=== PATIENT | female | born 1935 ===

== ENCOUNTER 2018-06-18 15:32 | Inpatient (IN) | payer MEDICARE, OTHER ==
[2018-06-18 15:44] VITALS: BMI 21.3
[2018-06-18 15:50] LABS: BASO % 0.5 % (0.0-2.0); EOS % 0.6 % (0.0-4.0); HEMOGLOBIN 11.7 g/dL (11.0-16.0); LYMPH # 1.1 K/uL (1.0-4.3); LYMPH % 14.7 % (20.0-40.0); MEAN CELL VOLUME 86.4 fL (81.0-99.0); MEAN CORPUSCULAR HEMOGLOBIN 27.3 pg (27.0-31.0); MEAN CORPUSCULAR HGB CONC 31.6 g/dL (33.0-37.0); MEAN PLATELET VOLUME 7.7 fL (7.2-11.7); MONO # 0.6 K/uL (0.0-0.8); MONO % 7.7 % (0.0-10.0); NEUT # 5.9 K/uL (1.8-7.0); NEUT % 76.5 % (50.0-75.0); NRBC % 0.1 % (0.0-2.0); RBC 4.28 Mil/uL (3.80-5.20); RED CELL DISTRIBUTION WIDTH 14.8 % (11.5-14.5); WHITE BLOOD COUNT 7.7 K/uL (4.8-10.8)
--- NOTE | 2018-06-18 15:57 | C.PDOC ---
History Of Present Illness 83 y/o F from NH sent as possible stroke. Patient was seen at her baseline last night. This is the last time well. At 7am this morning, patient seen with L sided facial droop, L sided weakness, not responding other than "ay ay ay" to pain. DC staff say patient is verbal at baseline. Full HPI/ROS unobtainable due to patient's condition. Time Seen by Provider: 06/18/18 15:38 Chief Complaint (Nursing): Weakness/Neurological Deficit History Per: Patient, EMS ([facility]) History/Exam Limitations: clinical condition Current Symptoms Are (Timing): Still Present Recent travel outside of the [place]: No Past Medical History Reviewed: Historical Data, Nursing Documentation, Vital Signs Vital Signs: Last Vital Signs Temp 98 F 06/18/18 15:34 Pulse 65 06/18/18 15:34 Resp 14 06/18/18 15:34 BP 134/64 06/18/18 15:34 Pulse Ox 97 06/18/18 15:34 - Medical History PMH: Arthritis, HTN, Schizophrenia Denies: Diabetes, Hepatitis, HIV, Chronic Kidney Disease, Seizures, Sexually Transmitted Disease Family History: States: Unknown Family Hx - Social History Hx Alcohol Use: No Hx Substance Use: No Review Of Systems Review Of Systems: ROS cannot be obtained secondary to pt's inabilty to answer questions. Physical Exam - Physical Exam Additional Physical Exam Comments: gen eye closed, leaning towards L head nc/at eyes pupils equal and reactive ent mmm neck supple chest no deformity cv reg rate lungs cta b/l abd soft, nt back no cva tenderness skin no rash extremities no asymmetrical edema neuro responsive to pain, L facial droop? ED Course And Treatment - Laboratory Results Result Diagrams: 06/18/18 15:41 06/18/18 16:44 O2 Sat by Pulse Oximetry: 97 (RA) Pulse Ox Interpretation: Normal - CT Scan/US CT Head Other Rad Studies (CT/US): Read By Radiologist CT/US Interpretation: FINDINGS: HEMORRHAGE: No intracranial hemorrhage. BRAIN: No mass effect or edema. Mild age-appropriate diffuse atrophy. Moderate patchy periventricular and deep white matter lucency consistent with chronic microvascular ischemic change. No evidence of acute infarct. VENTRICLES: Unremarkable. No hydrocephalus. CALVARIUM: Unremarkable. PARANASAL SINUSES: Unremarkable as visualized. No significant inflammatory changes. MASTOID AIR CELLS: Unremarkable as visualized. No inflammatory changes. OTHER FINDINGS: None. IMPRESSION: No evidence of acute infarct. No intracranial hemorrhage. Chronic white matter ischemic change and age- appropriate atrophy. The above findings were discussed by telephone with Dr. Linda at 4:02 p.m. on 06/18/2018. NIHSS Stroke Scale 2 - Date/Time Evaluation Performed Date Performed: 06/18/18 Time Performed: 15:59 When Was NIHSS Performed: Baseline - How Severe is the Stroke Level of Consciousness: 2=Obtunded LOC to Questions: 2=Neither correct LOC to commands: 2=Neither correct Best Gaze: 0=Normal Visual: 3=Bilateral Facial: 3=Complete unilateral paralysis Motor Arm - Left: 3=No effort against gravity (falls immediately) Motor Arm - Right: 3=No effort against gravity (falls immediately) Motor Leg - Left: 3=No effort against gravity (falls immediately) Motor Leg - Right: 3=No effort against gravity (falls immediately) Limb Ataxia: 0=Absent Sensory: 0=Normal Best Language: 0=No aphasia Dysarthia: 0=Normal articulation Extinction & Inattention (Neglect): 0=Normal, no object Score: 24 rTPA Inclusion/Exclusion - Refusal of Treatment Patient Refused Treatment: No - Inclusion Criteria for Altepase All of the below criteria for inclusion were reviewed: Yes Patient is 18 years or Older: Yes The Clinical Diagnosis of Ischemic Stroke That is Causing a Potentially Disabling Neurological Deficit: Yes Time of Onset is Well Established to be Less Than 270 Minute Before Treatment Would Begin: Yes Risk/Benefit Discussed With Patient/Family Member Present: Yes Medical Decision Making Medical Decision Making: Initial plan: -Blood sent. -EKG -CXR -CT Head w/o Code stroke -Urine culture -Urinalysis Progress/Update: 4:15pm: Spoke with Dr. Stevenson regarding the pt's case. At 5:30, patient awake, alert, answers questions, denies any pain or any complaints. Does not remember episode from earlier. Disposition - Disposition Disposition: HOSPITALIZED Disposition Time: 17:47 Condition: FAIR Forms: [facility] (Vietnamese) - POA Core Measure Indicators: Code Stroke - Clinical Impression Clinical Impression: TIA (transient ischemic attack)
--- NOTE | 2018-06-18 16:06 | CT ---
Date of service: 06/18/2018 PROCEDURE: CT HEAD WITHOUT CONTRAST. HISTORY: Code Stroke COMPARISON: None available. TECHNIQUE: Axial computed tomography images were obtained through the head/brain without intravenous contrast. Radiation dose: Total exam DLP = 1075.98 mGy-cm. This CT exam was performed using one or more of the following dose reduction techniques: Automated exposure control, adjustment of the mA and/or kV according to patient size, and/or use of iterative reconstruction technique. FINDINGS: HEMORRHAGE: No intracranial hemorrhage. BRAIN: No mass effect or edema. Mild age-appropriate diffuse atrophy. Moderate patchy periventricular and deep white matter lucency consistent with chronic microvascular ischemic change. No evidence of acute infarct. VENTRICLES: Unremarkable. No hydrocephalus. CALVARIUM: Unremarkable. PARANASAL SINUSES: Unremarkable as visualized. No significant inflammatory changes. MASTOID AIR CELLS: Unremarkable as visualized. No inflammatory changes. OTHER FINDINGS: None. IMPRESSION: No evidence of acute infarct. No intracranial hemorrhage. Chronic white matter ischemic change and age-appropriate atrophy. The above findings were discussed by telephone with Dr. Linda at 4:02 p.m. on 06/18/2018.
[2018-06-18 16:56] LABS: PROTHROMBIN TIME 11.4 SECONDS (9.7-12.2)
[2018-06-18 17:00] LABS: ALB/GLOB RATIO 1.4 (1.0-2.1); ALBUMIN 3.8 g/dL (3.5-5.0); ALT/SGPT 29 U/L (9-52); AST/SGOT 47 U/L (14-36); BLOOD UREA NITROGEN 23 mg/dL (7-17); CALCIUM 9.6 mg/dl (8.6-10.4); GFR NON-AFRICAN AMERICAN > 60; HDL CHOLESTEROL 76 mg/dL (30-70)
[2018-06-18 17:10] LABS: LDL CHOLESTEROL 108 mg/dL (0-129)
--- NOTE | 2018-06-18 17:35 | RAD ---
Date of service: 06/18/2018 HISTORY: Code Stroke COMPARISON: No prior. TECHNIQUE: 1 view obtained. FINDINGS: LUNGS: No active pulmonary disease. PLEURA: No significant pleural effusion identified, no pneumothorax apparent. CARDIOVASCULAR: No aortic atherosclerotic calcification present. Normal cardiac size. No pulmonary vascular congestion. OSSEOUS STRUCTURES: No significant abnormalities. VISUALIZED UPPER ABDOMEN: Normal. OTHER FINDINGS: None. IMPRESSION: No active disease.
[2018-06-18 17:38] LABS: URINE AMORPHOUS SEDIMENT RARE /ul (<OCC); URINE BACTERIA OCC (<OCC); URINE BILIRUBIN NEGATIVE (NEGATIVE); URINE BLOOD NEGATIVE (NEGATIVE); URINE CLARITY Hazy (Clear); URINE COLOR Yellow (YELLOW); URINE GLUCOSE (UA) NORMAL (Normal); URINE LEUKOCYTE ESTERASE NEG Leu/uL (Negative); URINE PROTEIN NEGATIVE (NEGATIVE)
[2018-06-18] MEDS: Sodium Chloride 0.9% 1,000 ML IV SCH (19:00)
--- NOTE | 2018-06-18 21:04 | CP.PCM.HP ---
History of Present Illness - History of Present Illness History of Present Illness: 83-year-old female was sent from the halfway because of possible stroke although patient's history is very poor and not reliable Patient was brought from the halfway as patient 7 in the morning complained of left facial droop witnessed and was not responding even in the ER patient was responding little less eventually patient was brought to the emergency room Case discussed with the ER attending patient is poor historian unable to obtain for HPI and review of systems patient was admitted with the code stroke Patient is 9 smoker non-EtOH abuser Hemoglobin hematocrit 1137 respectively with BUN/creatinine 1323 and 0.[address] head revealed no intracranial hemorrhage no evidence of acute infarct chronic white matter ischemic changes with age at Road appropriate atrophy 12 point review of system is unobtainable or not remarkable Arthritis, HTN, Schizophrenia Denies: Diabetes, Hepatitis, HIV, Chronic Kidney Disease, Seizures, Sexually Transmitted Disease Present on Admission - Present on Admission Any Indicators Present on Admission: No Past Patient History - Past Social History Smoking Status: Never Smoked - CARDIAC Hx Hypertension: Yes - PULMONARY Hx Tuberculosis: No - NEUROLOGICAL Hx Seizures: No - HEENT Hx HEENT Problems: No - RENAL Hx Chronic Kidney Disease: No - ENDOCRINE/METABOLIC Hx Endocrine Disorders: No - HEMATOLOGICAL/ONCOLOGICAL Hx Human Immunodeficiency Virus (HIV): No - INTEGUMENTARY Hx Dermatological Problems: No - MUSCULOSKELETAL/RHEUMATOLOGICAL Hx Arthritis: Yes - GASTROINTESTINAL Hx Gastrointestinal Disorders: No - GENITOURINARY/GYNECOLOGICAL Hx Sexually Transmitted Disorders: No - PSYCHIATRIC Hx Schizophrenia: Yes Hx Substance Use: No - SURGICAL HISTORY Hx Hysterectomy: Yes - ANESTHESIA Hx Anesthesia: Yes Hx Anesthesia Reactions: No Meds Allergies/Adverse Reactions: Allergies Allergy/AdvReac Type Severity Reaction Status Date / Time cucumber Allergy Verified 06/18/18 15:39 Iodinated Contrast- Oral and Allergy RASH Verified 05/27/17 19:37 IV Dye lettuce Allergy Verified 06/18/18 15:38 tomato Allergy Verified 06/18/18 15:39 Physical Exam - Constitutional Appears: Well - Head Exam Head Exam: ATRAUMATIC, NORMAL INSPECTION, NORMOCEPHALIC - Eye Exam Eye Exam: EOMI, Normal appearance, PERRL Pupil Exam: NORMAL ACCOMODATION, PERRL - ENT Exam ENT Exam: Mucous Membranes Moist, Normal Exam - Neck Exam Neck exam: Positive for: Normal Inspection - Respiratory Exam Respiratory Exam: Decreased Breath Sounds - Cardiovascular Exam Cardiovascular Exam: REGULAR RHYTHM, +S1, +S2 - GI/Abdominal Exam GI & Abdominal Exam: Diminished Bowel Sounds, Soft - Rectal Exam Rectal Exam: Deferred - Neurological Exam Neurological exam: Oriented x3 Results - Vital Signs Recent Vital Signs: Last Vital Signs Temp 98.2 F 06/18/18 19:00 Pulse 65 06/18/18 19:00 Resp 20 06/18/18 19:00 BP 180/80 H 06/18/18 19:00 Pulse Ox 100 06/18/18 19:00 - Labs Result Diagrams: 06/18/18 15:41 06/18/18 16:44 Labs: Laboratory Results - last 24 hr 06/18/18 06/18/18 06/18/18 15:36 15:41 15:41 WBC 7.7 RBC 4.28 Hgb 11.7 Hct 37.0 MCV 86.4 MCH 27.3 MCHC 31.6 L RDW 14.8 H Plt Count 287 MPV 7.7 Neut % (Auto) 76.5 H Lymph % (Auto) 14.7 L [place] % (Auto) 7.7 Eos % (Auto) 0.6 Baso % (Auto) 0.5 Neut # (Auto) 5.9 Lymph # (Auto) 1.1 [place] # (Auto) 0.6 Eos # (Auto) 0.0 Baso # (Auto) 0.0 PT INR APTT Sodium Cancelled Potassium Cancelled Chloride Cancelled Carbon Dioxide Cancelled Anion Gap Cancelled BUN Cancelled Creatinine Cancelled Est GFR ( Amer) Cancelled Est GFR (Non-Af Amer) Cancelled POC Glucose (mg/dL) 104 Random Glucose Cancelled Hemoglobin A1c Calcium Cancelled Total Bilirubin Cancelled AST Cancelled ALT Cancelled Alkaline Phosphatase Cancelled Troponin I Cancelled Total Protein Cancelled Albumin Cancelled Globulin Cancelled Albumin/Globulin Ratio Cancelled Triglycerides Cancelled Cholesterol Cancelled LDL Cholesterol Direct Cancelled HDL Cholesterol Cancelled Urine Color Urine Clarity Urine pH Ur Specific [place] Urine Protein Urine Glucose (UA) Urine Ketones Urine Blood Urine Nitrate Urine Bilirubin Urine Urobilinogen Ur Leukocyte Esterase Urine WBC (Auto) Urine RBC (Auto) Amorphous Sediment Urine Bacteria Blood Type Antibody Screen 06/18/18 06/18/18 06/18/18 15:41 16:44 16:44 WBC RBC Hgb Hct MCV MCH MCHC RDW Plt Count MPV Neut % (Auto) Lymph % (Auto) [place] % (Auto) Eos % (Auto) Baso % (Auto) Neut # (Auto) Lymph # (Auto) [place] # (Auto) Eos # (Auto) Baso # (Auto) PT 11.4 INR 1.0 APTT 34.0 Sodium Potassium Chloride Carbon Dioxide Anion Gap BUN Creatinine Est GFR ( Amer) Est GFR (Non-Af Amer) POC Glucose (mg/dL) Random Glucose Hemoglobin A1c 6.7 H Calcium Total Bilirubin AST ALT Alkaline Phosphatase Troponin I Total Protein Albumin Globulin Albumin/Globulin Ratio Triglycerides Cholesterol LDL Cholesterol Direct HDL Cholesterol Urine Color Urine Clarity Urine pH Ur Specific [place] Urine Protein Urine Glucose (UA) Urine Ketones Urine Blood Urine Nitrate Urine Bilirubin Urine Urobilinogen Ur Leukocyte Esterase Urine WBC (Auto) Urine RBC (Auto) Amorphous Sediment Urine Bacteria Blood Type O POSITIVE Antibody Screen Negative 06/18/18 06/18/18 16:44 17:25 WBC RBC Hgb Hct MCV MCH MCHC RDW Plt Count MPV Neut % (Auto) Lymph % (Auto) [place] % (Auto) Eos % (Auto) Baso % (Auto) Neut # (Auto) Lymph # (Auto) [place] # (Auto) Eos # (Auto) Baso # (Auto) PT INR APTT Sodium 140 Potassium 3.7 Chloride 100 Carbon Dioxide 33 H Anion Gap 10 BUN 23 H Creatinine 0.8 Est GFR ( Amer) > 60 Est GFR (Non-Af Amer) > 60 POC Glucose (mg/dL) Random Glucose 94 Hemoglobin A1c Calcium 9.6 Total Bilirubin 0.4 AST 47 H ALT 29 Alkaline Phosphatase 102 Troponin I < 0.0120 Total Protein 6.5 Albumin 3.8 Globulin 2.7 Albumin/Globulin Ratio 1.4 Triglycerides 78 Cholesterol 203 H LDL Cholesterol Direct 108 HDL Cholesterol 76 H Urine Color Yellow Urine Clarity Hazy Urine pH 6.0 Ur Specific [place] 1.017 Urine Protein Negative Urine Glucose (UA) Normal Urine Ketones Negative Urine Blood Negative Urine Nitrate Negative Urine Bilirubin Negative Urine Urobilinogen 2.0 H Ur Leukocyte Esterase Neg Urine WBC (Auto) 1 Urine RBC (Auto) 2 Amorphous Sediment Rare H Urine Bacteria Occ H Blood Type Antibody Screen Assessment & Plan - Assessment and Plan (Free Text) Plan: Plan CBC CMP EKG normal sinus rhythm normal nonspecific ST-T changes chest x-ray report pending CT head no acute stroke, urine culture and urine analysis sent aspirin crestor Patient passed swallow eval so started the patient on the food All the medications ordered and advised to resume Plan and Home medication reconciliation Plan of care discussed with the staff Will call the family
--- NOTE | 2018-06-19 11:10 | CP.PCM.CON ---
History of Present Illness - History of Present Illness History of Present Illness: Neurology consult called by Dr. Linda as a code stroke with NIHSS of 4 initially, resolved within 1 hour of presentation. Therefore, patient was not considered a TPA candidate. Patient today has no focal weakness, NIHSS: 0. Able to follow commands, and identify objects in [place] A/p: TIA most likely, vs. seizure. Plan; 1. MRI BRain in am. 2. EEG in am Thank you DR. mahoney Neurology Past Patient History - Past Social History Smoking Status: Never Smoked - CARDIAC Hx Hypertension: Yes - PULMONARY Hx Tuberculosis: No - NEUROLOGICAL Hx Seizures: No - HEENT Hx HEENT Problems: No - RENAL Hx Chronic Kidney Disease: No - ENDOCRINE/METABOLIC Hx Endocrine Disorders: No - HEMATOLOGICAL/ONCOLOGICAL Hx Human Immunodeficiency Virus (HIV): No - INTEGUMENTARY Hx Dermatological Problems: No - MUSCULOSKELETAL/RHEUMATOLOGICAL Hx Arthritis: Yes - GASTROINTESTINAL Hx Gastrointestinal Disorders: No - GENITOURINARY/GYNECOLOGICAL Hx Sexually Transmitted Disorders: No - PSYCHIATRIC Hx Schizophrenia: Yes Hx Substance Use: No - SURGICAL HISTORY Hx Hysterectomy: Yes - ANESTHESIA Hx Anesthesia: Yes Hx Anesthesia Reactions: No Meds Allergies/Adverse Reactions: Allergies Allergy/AdvReac Type Severity Reaction Status Date / Time cucumber Allergy Verified 06/18/18 15:39 Iodinated Contrast- Oral and Allergy RASH Verified 05/27/17 19:37 IV Dye lettuce Allergy Verified 06/18/18 15:38 tomato Allergy Verified 06/18/18 15:39 - Medications Medications: Current Medications Amlodipine Besylate (Norvasc) 10 mg PO DAILY [facility] Last Admin: 06/19/18 09:26 Dose: 10 mg Aspirin (Aspirin Chewable) 81 mg PO DAILY [facility] Last Admin: 06/19/18 09:27 Dose: 81 mg Bisoprolol Fumarate (Zebeta) 5 mg PO DAILY [facility] Last Admin: 06/19/18 09:25 Dose: 5 mg Docusate Sodium (Colace) 100 mg PO BID [facility] Last Admin: 06/19/18 09:27 Dose: 100 mg Famotidine (Pepcid) 20 mg PO DAILY [facility] Last Admin: 06/19/18 09:26 Dose: 20 mg Furosemide (Lasix) 20 mg PO DAILY [facility] Last Admin: 06/19/18 09:27 Dose: 20 mg Sodium Chloride (Sodium Chloride 0.9%) 1,000 mls @ 60 mls/hr IV .[id number] [facility] Last Admin: 06/18/18 19:00 Dose: 60 mls/hr Latanoprost (Xalatan Opht) 0.05 ml OD [facility] Prednisone (Prednisone Tab) 5 mg PO DAILY [facility] Last Admin: 06/19/18 09:26 Dose: 5 mg Risperidone (Risperdal Tab) 0.25 mg PO Q12 [facility] Last Admin: 06/19/18 09:26 Dose: 0.25 mg Rosuvastatin Calcium (Crestor) 10 mg PO HS [facility] Last Admin: 06/18/18 22:21 Dose: 10 mg Results - Vital Signs Recent Vital Signs: Last Vital Signs Temp 98.1 F 06/19/18 07:00 Pulse 63 06/19/18 07:00 Resp 20 06/19/18 07:00 BP 130/65 06/19/18 09:27 Pulse Ox 98 06/19/18 07:00 - Labs Result Diagrams: 06/18/18 15:41 06/18/18 16:44 Labs: Laboratory Results - last 24 hr 06/18/18 06/18/18 06/18/18 15:36 15:41 15:41 WBC 7.7 RBC 4.28 Hgb 11.7 Hct 37.0 MCV 86.4 MCH 27.3 MCHC 31.6 L RDW 14.8 H Plt Count 287 MPV 7.7 Neut % (Auto) 76.5 H Lymph % (Auto) 14.7 L [place] % (Auto) 7.7 Eos % (Auto) 0.6 Baso % (Auto) 0.5 Neut # (Auto) 5.9 Lymph # (Auto) 1.1 [place] # (Auto) 0.6 Eos # (Auto) 0.0 Baso # (Auto) 0.0 PT INR APTT Sodium Cancelled Potassium Cancelled Chloride Cancelled Carbon Dioxide Cancelled Anion Gap Cancelled BUN Cancelled Creatinine Cancelled Est GFR ( Amer) Cancelled Est GFR (Non-Af Amer) Cancelled POC Glucose (mg/dL) 104 Random Glucose Cancelled Hemoglobin A1c Calcium Cancelled Total Bilirubin Cancelled AST Cancelled ALT Cancelled Alkaline Phosphatase Cancelled Troponin I Cancelled Total Protein Cancelled Albumin Cancelled Globulin Cancelled Albumin/Globulin Ratio Cancelled Triglycerides Cancelled Cholesterol Cancelled LDL Cholesterol Direct Cancelled HDL Cholesterol Cancelled Urine Color Urine Clarity Urine pH Ur Specific [place] Urine Protein Urine Glucose (UA) Urine Ketones Urine Blood Urine Nitrate Urine Bilirubin Urine Urobilinogen Ur Leukocyte Esterase Urine WBC (Auto) Urine RBC (Auto) Amorphous Sediment Urine Bacteria Blood Type Antibody Screen 06/18/18 06/18/18 06/18/18 15:41 16:44 16:44 WBC RBC Hgb Hct MCV MCH MCHC RDW Plt Count MPV Neut % (Auto) Lymph % (Auto) [place] % (Auto) Eos % (Auto) Baso % (Auto) Neut # (Auto) Lymph # (Auto) [place] # (Auto) Eos # (Auto) Baso # (Auto) PT 11.4 INR 1.0 APTT 34.0 Sodium Potassium Chloride Carbon Dioxide Anion Gap BUN Creatinine Est GFR ( Amer) Est GFR (Non-Af Amer) POC Glucose (mg/dL) Random Glucose Hemoglobin A1c 6.7 H Calcium Total Bilirubin AST ALT Alkaline Phosphatase Troponin I Total Protein Albumin Globulin Albumin/Globulin Ratio Triglycerides Cholesterol LDL Cholesterol Direct HDL Cholesterol Urine Color Urine Clarity Urine pH Ur Specific [place] Urine Protein Urine Glucose (UA) Urine Ketones Urine Blood Urine Nitrate Urine Bilirubin Urine Urobilinogen Ur Leukocyte Esterase Urine WBC (Auto) Urine RBC (Auto) Amorphous Sediment Urine Bacteria Blood Type O POSITIVE Antibody Screen Negative 06/18/18 06/18/18 06/18/18 16:44 17:25 20:56 WBC RBC Hgb Hct MCV MCH MCHC RDW Plt Count MPV Neut % (Auto) Lymph % (Auto) [place] % (Auto) Eos % (Auto) Baso % (Auto) Neut # (Auto) Lymph # (Auto) [place] # (Auto) Eos # (Auto) Baso # (Auto) PT INR APTT Sodium 140 Potassium 3.7 Chloride 100 Carbon Dioxide 33 H Anion Gap 10 BUN 23 H Creatinine 0.8 Est GFR ( Amer) > 60 Est GFR (Non-Af Amer) > 60 POC Glucose (mg/dL) 118 H Random Glucose 94 Hemoglobin A1c Calcium 9.6 Total Bilirubin 0.4 AST 47 H ALT 29 Alkaline Phosphatase 102 Troponin I < 0.0120 Total Protein 6.5 Albumin 3.8 Globulin 2.7 Albumin/Globulin Ratio 1.4 Triglycerides 78 Cholesterol 203 H LDL Cholesterol Direct 108 HDL Cholesterol 76 H Urine Color Yellow Urine Clarity Hazy Urine pH 6.0 Ur Specific [place] 1.017 Urine Protein Negative Urine Glucose (UA) Normal Urine Ketones Negative Urine Blood Negative Urine Nitrate Negative Urine Bilirubin Negative Urine Urobilinogen 2.0 H Ur Leukocyte Esterase Neg Urine WBC (Auto) 1 Urine RBC (Auto) 2 Amorphous Sediment Rare H Urine Bacteria Occ H Blood Type Antibody Screen
[2018-06-19] MEDS: Sodium Chloride 0.9% 1,000 ML IV SCH (11:24)
--- NOTE | 2018-06-19 11:27 | CP.PCM.CON ---
History of Present Illness - History of Present Illness History of Present Illness: I was asked to see patient by Dr Benavidez Patient seen 06/19/18 [id number] Patient is a 83 year old female with HTN, hypercholesterolemia who presents with TIA. The patinet cannot give apporpriate history but had previous weakness, Symptoms appear to have resolved. Review of Systems - Review of Systems Systems not reviewed;Unavailable: Altered Mental Status Past Patient History - Past Social History Smoking Status: Never Smoked - CARDIAC Hx Hypertension: Yes - PULMONARY Hx Tuberculosis: No - NEUROLOGICAL Hx Seizures: No - HEENT Hx HEENT Problems: No - RENAL Hx Chronic Kidney Disease: No - ENDOCRINE/METABOLIC Hx Endocrine Disorders: No - HEMATOLOGICAL/ONCOLOGICAL Hx Human Immunodeficiency Virus (HIV): No - INTEGUMENTARY Hx Dermatological Problems: No - MUSCULOSKELETAL/RHEUMATOLOGICAL Hx Arthritis: Yes - GASTROINTESTINAL Hx Gastrointestinal Disorders: No - GENITOURINARY/GYNECOLOGICAL Hx Sexually Transmitted Disorders: No - PSYCHIATRIC Hx Schizophrenia: Yes Hx Substance Use: No - SURGICAL HISTORY Hx Hysterectomy: Yes - ANESTHESIA Hx Anesthesia: Yes Hx Anesthesia Reactions: No Meds Allergies/Adverse Reactions: Allergies Allergy/AdvReac Type Severity Reaction Status Date / Time cucumber Allergy Verified 06/18/18 15:39 Iodinated Contrast- Oral and Allergy RASH Verified 05/27/17 19:37 IV Dye lettuce Allergy Verified 06/18/18 15:38 tomato Allergy Verified 06/18/18 15:39 - Medications Medications: Current Medications Amlodipine Besylate (Norvasc) 10 mg PO DAILY [facility] Last Admin: 06/19/18 09:26 Dose: 10 mg Aspirin (Aspirin Chewable) 81 mg PO DAILY [facility] Last Admin: 06/19/18 09:27 Dose: 81 mg Bisoprolol Fumarate (Zebeta) 5 mg PO DAILY [facility] Last Admin: 06/19/18 09:25 Dose: 5 mg Docusate Sodium (Colace) 100 mg PO BID [facility] Last Admin: 06/19/18 09:27 Dose: 100 mg Famotidine (Pepcid) 20 mg PO DAILY [facility] Last Admin: 06/19/18 09:26 Dose: 20 mg Furosemide (Lasix) 20 mg PO DAILY [facility] Last Admin: 06/19/18 09:27 Dose: 20 mg Sodium Chloride (Sodium Chloride 0.9%) 1,000 mls @ 60 mls/hr IV .[id number] [facility] Last Admin: 06/18/18 19:00 Dose: 60 mls/hr Latanoprost (Xalatan Opht) 0.05 ml OD HS [facility] Prednisone (Prednisone Tab) 5 mg PO DAILY [facility] Last Admin: 06/19/18 09:26 Dose: 5 mg Risperidone (Risperdal Tab) 0.25 mg PO Q12 [facility] Last Admin: 06/19/18 09:26 Dose: 0.25 mg Rosuvastatin Calcium (Crestor) 10 mg PO HS [facility] Last Admin: 06/18/18 22:21 Dose: 10 mg Physical Exam - Constitutional Appears: Non-toxic - Head Exam Head Exam: NORMAL INSPECTION - Eye Exam Eye Exam: Normal appearance - ENT Exam ENT Exam: Mucous Membranes Moist - Neck Exam Neck exam: Positive for: Full Rom, Normal Inspection - Respiratory Exam Respiratory Exam: NORMAL BREATHING PATTERN - Cardiovascular Exam Cardiovascular Exam: REGULAR RHYTHM - GI/Abdominal Exam GI & Abdominal Exam: Normal Bowel Sounds - Rectal Exam Rectal Exam: Deferred - Extremities Exam Extremities exam: Positive for: normal inspection. Negative for: pedal edema - Back Exam Back exam: NORMAL INSPECTION - Neurological Exam Neurological exam: Alert, Oriented x3 - Psychiatric Exam Psychiatric exam: Normal Affect - Skin Skin Exam: Normal Color Results - Vital Signs Recent Vital Signs: Last Vital Signs Temp 98.1 F 06/19/18 07:00 Pulse 63 06/19/18 07:00 Resp 20 06/19/18 07:00 BP 130/65 06/19/18 09:27 Pulse Ox 98 06/19/18 07:00 - Labs Result Diagrams: 06/18/18 15:41 06/18/18 16:44 Labs: Laboratory Results - last 24 hr 06/18/18 06/18/18 06/18/18 15:36 15:41 15:41 WBC 7.7 RBC 4.28 Hgb 11.7 Hct 37.0 MCV 86.4 MCH 27.3 MCHC 31.6 L RDW 14.8 H Plt Count 287 MPV 7.7 Neut % (Auto) 76.5 H Lymph % (Auto) 14.7 L [place] % (Auto) 7.7 Eos % (Auto) 0.6 Baso % (Auto) 0.5 Neut # (Auto) 5.9 Lymph # (Auto) 1.1 [place] # (Auto) 0.6 Eos # (Auto) 0.0 Baso # (Auto) 0.0 PT INR APTT Sodium Cancelled Potassium Cancelled Chloride Cancelled Carbon Dioxide Cancelled Anion Gap Cancelled BUN Cancelled Creatinine Cancelled Est GFR ( Amer) Cancelled Est GFR (Non-Af Amer) Cancelled POC Glucose (mg/dL) 104 Random Glucose Cancelled Hemoglobin A1c Calcium Cancelled Total Bilirubin Cancelled AST Cancelled ALT Cancelled Alkaline Phosphatase Cancelled Troponin I Cancelled Total Protein Cancelled Albumin Cancelled Globulin Cancelled Albumin/Globulin Ratio Cancelled Triglycerides Cancelled Cholesterol Cancelled LDL Cholesterol Direct Cancelled HDL Cholesterol Cancelled Urine Color Urine Clarity Urine pH Ur Specific [place] Urine Protein Urine Glucose (UA) Urine Ketones Urine Blood Urine Nitrate Urine Bilirubin Urine Urobilinogen Ur Leukocyte Esterase Urine WBC (Auto) Urine RBC (Auto) Amorphous Sediment Urine Bacteria Blood Type Antibody Screen 06/18/18 06/18/18 06/18/18 15:41 16:44 16:44 WBC RBC Hgb Hct MCV MCH MCHC RDW Plt Count MPV Neut % (Auto) Lymph % (Auto) [place] % (Auto) Eos % (Auto) Baso % (Auto) Neut # (Auto) Lymph # (Auto) [place] # (Auto) Eos # (Auto) Baso # (Auto) PT 11.4 INR 1.0 APTT 34.0 Sodium Potassium Chloride Carbon Dioxide Anion Gap BUN Creatinine Est GFR ( Amer) Est GFR (Non-Af Amer) POC Glucose (mg/dL) Random Glucose Hemoglobin A1c 6.7 H Calcium Total Bilirubin AST ALT Alkaline Phosphatase Troponin I Total Protein Albumin Globulin Albumin/Globulin Ratio Triglycerides Cholesterol LDL Cholesterol Direct HDL Cholesterol Urine Color Urine Clarity Urine pH Ur Specific [place] Urine Protein Urine Glucose (UA) Urine Ketones Urine Blood Urine Nitrate Urine Bilirubin Urine Urobilinogen Ur Leukocyte Esterase Urine WBC (Auto) Urine RBC (Auto) Amorphous Sediment Urine Bacteria Blood Type O POSITIVE Antibody Screen Negative 06/18/18 06/18/18 06/18/18 16:44 17:25 20:56 WBC RBC Hgb Hct MCV MCH MCHC RDW Plt Count MPV Neut % (Auto) Lymph % (Auto) [place] % (Auto) Eos % (Auto) Baso % (Auto) Neut # (Auto) Lymph # (Auto) [place] # (Auto) Eos # (Auto) Baso # (Auto) PT INR APTT Sodium 140 Potassium 3.7 Chloride 100 Carbon Dioxide 33 H Anion Gap 10 BUN 23 H Creatinine 0.8 Est GFR ( Amer) > 60 Est GFR (Non-Af Amer) > 60 POC Glucose (mg/dL) 118 H Random Glucose 94 Hemoglobin A1c Calcium 9.6 Total Bilirubin 0.4 AST 47 H ALT 29 Alkaline Phosphatase 102 Troponin I < 0.0120 Total Protein 6.5 Albumin 3.8 Globulin 2.7 Albumin/Globulin Ratio 1.4 Triglycerides 78 Cholesterol 203 H LDL Cholesterol Direct 108 HDL Cholesterol 76 H Urine Color Yellow Urine Clarity Hazy Urine pH 6.0 Ur Specific [place] 1.017 Urine Protein Negative Urine Glucose (UA) Normal Urine Ketones Negative Urine Blood Negative Urine Nitrate Negative Urine Bilirubin Negative Urine Urobilinogen 2.0 H Ur Leukocyte Esterase Neg Urine WBC (Auto) 1 Urine RBC (Auto) 2 Amorphous Sediment Rare H Urine Bacteria Occ H Blood Type Antibody Screen - EKG Data EKG Interpreted by: Myself EKG shows normal: Sinus rhythm Assessment & Plan (1) HTN (hypertension) Assessment and Plan: blood pressure control Status: Acute (2) Hypercholesterolemia Assessment and Plan: recommend statin therapy Status: Acute (3) TIA (transient ischemic attack) Assessment and Plan: recommend echocardiogram. statin therapy. Status: Acute
--- NOTE | 2018-06-19 13:55 | CON ---
DATE: 06/19/2018 Neurology consult called by Dr. Bari Linda for Aaliyah Slade. HISTORY OF PRESENT ILLNESS: Ms. Slade is an 83-year-old [facility], with last time well known, 9 p.m. the night before. At 7 a.m. this morning, the [facility] was discovered [facility] staff with left-sided facial droop, left-sided weakness, not responding with aphasia. She was in pain, but they were not able to determine any other post the neurological exam. At baseline, the patient is very verbal, speaking in [place] and [place], and is able to follow all commands. She was brought to the emergency room and code stroke was called. However, after obtaining CAT scan, the patient's symptoms resolved. This morning, the patient's symptoms have completely resolved and she has an NIH Stroke Scale of zero with initial NIH Stroke Scale of 4. PAST MEDICAL HISTORY: Arthritis, hepatitis, schizophrenia. PAST SURGICAL HISTORY: Not known. FAMILY HISTORY/SOCIAL HISTORY: The patient is a [facility] resident. No tobacco. No alcohol. ALLERGIES: CUCUMBER, IODINATED CONTRAST, FOR THIS REASON WE WERE NOT ABLE TO OBTAIN CT OF THE HEAD AND NECK. LABS ON ADMISSION: As follows: White count 7.7, hemoglobin 11.7, hematocrit 37. Sodium 140, potassium 3.7, bicarb 100, chloride 33, BUN 20, creatinine 0.8, glucose 94. CAT scan of the head was done and shows diffuse atrophy but no focal findings were noted. PHYSICAL EXAMINATION: On exam, the patient had the following neurologic exam. NEUROLOGIC: Alert, awake, oriented x2. The date was not correct. Pupils equal, round, reactive to light. Cranial nerves II through XII normal. There is no facial droop. EOMI. Mini-mental status was approximately 20/30. The patient dementia. She was able to name and repeat. She was able to identify body parts. She was able to identify simple objects. Remote and recent memory were 0/3. Writing and reading were not tested. The patient's attention span was poor. Motor tone was normal. Strength is 5/5 upper and lower limbs bilaterally. Sensory was not accurate. She did not elicit any deficit from fine touch or pin. Gait was not tested. Reflexes are +1 in upper and lower limbs bilaterally. Cranial nerves showed no dysmetria. There is no drift. IMPRESSION: This is an 83-year-old woman with possible transient ischemic attack. We will obtain MRI of the brain and as it is possible she may also had a focal seizure. Thank you for this consult. Santo Stevenson MD
[2018-06-19] MEDS: Latanoprost 2.5 ml Opht Soln OD SCH (21:45)
--- NOTE | 2018-06-19 22:12 | CP.PCM.PN ---
Subjective - Date & Time of Evaluation Date of Evaluation: 06/19/18 - Subjective Subjective: patient seen examined today at bedside no nausea no vomiting no dizziness no shortness of breath no diarrhea no fever Objective - Vital Signs/Intake and Output Vital Signs (last 24 hours): Temp Pulse Resp BP Pulse Ox 97.9 F 76 20 125/65 95 06/19/18 15:42 06/19/18 15:42 06/19/18 15:42 06/19/18 15:42 06/19/18 15:42 Intake and Output: 06/19/18 06/20/18 18:59 06:59 Intake Total 930 Balance 930 - Medications Medications: Current Medications Amlodipine Besylate (Norvasc) 10 mg PO DAILY [facility] Last Admin: 06/19/18 09:26 Dose: 10 mg Aspirin (Aspirin Chewable) 81 mg PO DAILY [facility] Last Admin: 06/19/18 09:27 Dose: 81 mg Bisoprolol Fumarate (Zebeta) 5 mg PO DAILY [facility] Last Admin: 06/19/18 09:25 Dose: 5 mg Docusate Sodium (Colace) 100 mg PO BID [facility] Last Admin: 06/19/18 17:55 Dose: 100 mg Famotidine (Pepcid) 20 mg PO DAILY [facility] Last Admin: 06/19/18 09:26 Dose: 20 mg Furosemide (Lasix) 20 mg PO DAILY [facility] Last Admin: 06/19/18 09:27 Dose: 20 mg Sodium Chloride (Sodium Chloride 0.9%) 1,000 mls @ 60 mls/hr IV .[id number] [facility] Last Admin: 06/19/18 11:24 Dose: 60 mls/hr Latanoprost (Xalatan Opht) 0.05 ml OD HS [facility] Last Admin: 06/19/18 21:45 Dose: 0.05 ml Prednisone (Prednisone Tab) 5 mg PO DAILY [facility] Last Admin: 06/19/18 09:26 Dose: 5 mg Risperidone (Risperdal Tab) 0.25 mg PO Q12 [facility] Last Admin: 06/19/18 21:45 Dose: 0.25 mg Rosuvastatin Calcium (Crestor) 10 mg PO HS [facility] Last Admin: 06/19/18 21:45 Dose: 10 mg - Labs Labs: 06/18/18 15:41 06/18/18 16:44 PT 11.4 SECONDS (9.7-12.2) 06/18/18 16:44 INR 1.0 06/18/18 16:44 APTT 34.0 SECONDS (21-34) 06/18/18 16:44 - Constitutional Appears: Well - Head Exam Head Exam: ATRAUMATIC, NORMAL INSPECTION, NORMOCEPHALIC - Eye Exam Eye Exam: EOMI, Normal appearance, PERRL Pupil Exam: NORMAL ACCOMODATION, PERRL - ENT Exam ENT Exam: Mucous Membranes Moist, Normal Exam - Neck Exam Neck Exam: Full ROM, Normal Inspection. absent: Lymphadenopathy - Respiratory Exam Respiratory Exam: Decreased Breath Sounds - Cardiovascular Exam Cardiovascular Exam: REGULAR RHYTHM, +S1, +S2 - GI/Abdominal Exam GI & Abdominal Exam: Soft, Diminished Bowel Sounds - Rectal Exam Rectal Exam: Deferred - Neurological Exam Neurological Exam: Oriented x3 Assessment and Plan - Assessment and Plan (Free Text) Plan: medications reviewed asprin chewable colace crestor ;lasix norvasc pepcid prednisone tab resperdal tab sodium chloride xalatan opht zebeta moderate complexity of care plan discussed with patient
[2018-06-20] MEDS: Sodium Chloride 0.9% 1,000 ML IV SCH (06:01)
--- NOTE | 2018-06-20 12:49 | CARD ---
APPROVED REPORT Date of service: 06/20/2018 EXAM: LIMITED Two-dimensional and M-mode echocardiogram with Doppler and color Doppler. INDICATION CVA/TIA 2D DIMENSIONS IVSd0.9 (0.7-1.1cm)LVDd3.5 (3.9-5.9cm) PWd1.1 (0.7-1.1cm)LA Efvcso85 (18-58mL) LVDs2.3 (2.5-4.0cm)FS (%) 35.7 % LVEF (%)66.2 (>50%)LVEF (Gottlieb's)70.76 % M-Mode DIMENSIONS Left Atrium (MM)2.08 (2.5-4.0cm)Aortic Root2.47 (2.2-3.7cm) Aortic Valve AI P 1/2 Piwd450fd Mitral Valve MV E Tzwxkkhf92.0cm/sMV A Ytqseuyg148.4cm/sE/A ratio0.5 TDI Lateral E' Peak V6.80cm/sMedial E' Peak V6.42cm/sE/Lateral E'7.9 E/Medial E'8.4 Tricuspid Valve TR Peak Telntxxa222sb/sTR Peak Gr.[id number] LEFT VENTRICLE The left ventricle is normal size. There is borderline to mild concentric left ventricular hypertrophy. Left ventricle systolic function is normal. The Ejection Fraction is 65-70%. There is normal LV segmental wall motion. Transmitral Doppler flow pattern is Grade I-abnormal relaxation pattern. There is no ventricular septal defect visualized. RIGHT VENTRICLE The right ventricle is normal size. The right ventricular systolic function is normal. ATRIA The left atrium is mildly dilated. The right atrium size is normal. AORTIC VALVE The aortic valve is not well visualized. The aortic valve is mildly sclerotic. There is mild aortic regurgitation. There is no aortic valvular stenosis. MITRAL VALVE The mitral valve is normal in structure. There is no evidence of mitral valve prolapse. There is no mitral valve regurgitation noted. TRICUSPID VALVE The tricuspid valve is normal in structure. There is trace tricuspid regurgitation. Right ventricular systolic pressure is estimated at less than 30 mmHg. There is no pulmonary hypertension. PULMONIC VALVE The pulmonic valve is not well visualized. There is trace pulmonic valvular regurgitation. GREAT VESSELS The aortic root is normal in size. The ascending aorta is normal in size. The ascending aorta is not well seen. The IVC is normal in size and collapses >50% with inspiration. PERICARDIAL EFFUSION There is no pericardial effusion. <Conclusion> There is borderline to mild concentric left ventricular hypertrophy. Left ventricle systolic function is normal. The Ejection Fraction is 65-70%. Transmitral Doppler flow pattern is Grade I-abnormal relaxation pattern. There is mild aortic regurgitation.
--- NOTE | 2018-06-20 14:46 | CP.PCM.PN ---
Subjective - Date & Time of Evaluation Date of Evaluation: 06/20/18 Time of Evaluation: 14:41 - Subjective Subjective: Neuro Follow-Up Note: Mrs. Slade was evaluated this afternoon at bedside. She is confused but is calm and cooperative. She admits to having dizziness yesterday but none now. She does not recall why she was brought to the hospital. She no longer has left sided weakness but slight left facial asymmetry persists. Currently she denies h/a, dizziness, visual changes, chest pain, palpitations, sob, cough, abd pain, n/v/d, paresthesias, fever/chills. Objective - Vital Signs/Intake and Output Vital Signs (last 24 hours): Temp Pulse Resp BP Pulse Ox 98.1 F 90 20 154/72 H 97 06/20/18 07:00 06/20/18 07:00 06/20/18 07:00 06/20/18 10:44 06/20/18 07:00 - Medications Medications: Current Medications Amlodipine Besylate (Norvasc) 10 mg PO DAILY [facility] Last Admin: 06/20/18 10:45 Dose: 10 mg Aspirin (Aspirin Chewable) 81 mg PO DAILY [facility] Last Admin: 06/20/18 10:44 Dose: 81 mg Bisoprolol Fumarate (Zebeta) 5 mg PO DAILY [facility] Last Admin: 06/20/18 10:44 Dose: 5 mg Docusate Sodium (Colace) 100 mg PO BID [facility] Last Admin: 06/20/18 11:00 Dose: 100 mg Famotidine (Pepcid) 20 mg PO DAILY [facility] Last Admin: 06/20/18 10:45 Dose: 20 mg Furosemide (Lasix) 20 mg PO DAILY [facility] Last Admin: 06/20/18 10:44 Dose: 20 mg Sodium Chloride (Sodium Chloride 0.9%) 1,000 mls @ 60 mls/hr IV .[id number] [facility] Last Admin: 06/20/18 06:01 Dose: 60 mls/hr Latanoprost (Xalatan Opht) 0.05 ml OD HS [facility] Last Admin: 06/19/18 21:45 Dose: 0.05 ml Prednisone (Prednisone Tab) 5 mg PO DAILY [facility] Last Admin: 06/20/18 10:44 Dose: 5 mg Risperidone (Risperdal Tab) 0.25 mg PO Q12 [facility] Last Admin: 06/20/18 10:45 Dose: 0.25 mg Rosuvastatin Calcium (Crestor) 10 mg PO HS [facility] Last Admin: 06/19/18 21:45 Dose: 10 mg - Labs Labs: 06/18/18 15:41 06/18/18 16:44 PT 11.4 SECONDS (9.7-12.2) 06/18/18 16:44 INR 1.0 06/18/18 16:44 APTT 34.0 SECONDS (21-34) 06/18/18 16:44 - Constitutional Appears: Well, No Acute Distress, Confused - Head Exam Head Exam: ATRAUMATIC, NORMAL INSPECTION, NORMOCEPHALIC - Eye Exam Eye Exam: EOMI, Normal appearance, PERRL Pupil Exam: NORMAL ACCOMODATION, PERRL - ENT Exam ENT Exam: Mucous Membranes Moist - Neck Exam Neck Exam: Full ROM, Normal Inspection - Respiratory Exam Respiratory Exam: NORMAL BREATHING PATTERN - Extremities Exam Extremities Exam: Full ROM, Normal Inspection. absent: Calf Tenderness, Pedal Edema Additional comments: Able to move all extremities but has generalized weakness 2/2 deconditioning. - Neurological Exam Neurological Exam: Alert, Altered, Awake, Reflexes Normal. absent: Oriented x3 Neuro motor strength exam: Left Upper Extremity: 4 (distal 4/5), Right Upper Extremity: 4 (distal 4/5), Left Lower Extremity: 3 (distal 3/5), Right Lower Extremity: 3 (distal 3/5) Additional comments: Confused, disoriented x3; calm and cooperative. Speech clear, fluid. Slight left sided facial asymmetry. FROM to all extremities though has generalized weakness 2/2 deconditioning. No sensory deficits. No tremors or abnormal movements. - Psychiatric Exam Psychiatric exam: Normal Affect, Normal Mood Additional comments: confused though calm and cooperative - Skin Skin Exam: Normal Color Assessment and Plan - Assessment and Plan (Free Text) Assessment: A/P: Mrs. Slade is an 83 y/o woman who was admitted for left sided arm and leg weakness and left facial droop. She still has a slight left facial droop. Stroke w/u still in progress and we are still in the process of ruling out seizures. Imaging reviewed: -CT Head (06/18/18): No evidence of acute infarct. No intracranial hemorrhage. Chronic white matter ischemic change and age-appropriate atrophy. -EEG done, results pending---will f/u. -MRI Brain ordered to r/o acute CVA--MRI dept needs cardiology clearance first 2/2 pt having a loop recorder--Dr. Negrete was contacted by primary nurse. -MRA Head and neck ordered as part of stroke w/u and r/o LVO based on pt's complaint of dizziness. -Continue PT/OT. -Continue ASA and statin. -Continue supportive care and management of other medical issues. -Notify neuro team of any acute changes to pt's condition. Bibiana Martinez, DNP, NETWORK ADMIN d/w Dr. Arias
--- NOTE | 2018-06-20 19:25 | CP.PCM.PN ---
Subjective - Date & Time of Evaluation Date of Evaluation: 06/20/18 - Subjective Subjective: patient seen today no nausea no vomiting no shortness of breath no fever no diarrhea Objective - Vital Signs/Intake and Output Vital Signs (last 24 hours): Temp Pulse Resp BP Pulse Ox 97.9 F 70 18 122/62 95 06/20/18 15:00 06/20/18 15:00 06/20/18 15:00 06/20/18 15:00 06/20/18 15:00 - Medications Medications: Current Medications Amlodipine Besylate (Norvasc) 10 mg PO DAILY [facility] Last Admin: 06/20/18 10:45 Dose: 10 mg Aspirin (Aspirin Chewable) 81 mg PO DAILY [facility] Last Admin: 06/20/18 10:44 Dose: 81 mg Bisoprolol Fumarate (Zebeta) 5 mg PO DAILY [facility] Last Admin: 06/20/18 10:44 Dose: 5 mg Docusate Sodium (Colace) 100 mg PO BID [facility] Last Admin: 06/20/18 17:44 Dose: 100 mg Famotidine (Pepcid) 20 mg PO DAILY [facility] Last Admin: 06/20/18 10:45 Dose: 20 mg Furosemide (Lasix) 20 mg PO DAILY [facility] Last Admin: 06/20/18 10:44 Dose: 20 mg Sodium Chloride (Sodium Chloride 0.9%) 1,000 mls @ 60 mls/hr IV .[id number] [facility] Last Admin: 06/20/18 06:01 Dose: 60 mls/hr Latanoprost (Xalatan Opht) 0.05 ml OD HS [facility] Last Admin: 06/19/18 21:45 Dose: 0.05 ml Prednisone (Prednisone Tab) 5 mg PO DAILY [facility] Last Admin: 06/20/18 10:44 Dose: 5 mg Risperidone (Risperdal Tab) 0.25 mg PO Q12 [facility] Last Admin: 06/20/18 10:45 Dose: 0.25 mg Rosuvastatin Calcium (Crestor) 10 mg PO HS [facility] Last Admin: 06/19/18 21:45 Dose: 10 mg - Labs Labs: 06/18/18 15:41 06/18/18 16:44 PT 11.4 SECONDS (9.7-12.2) 06/18/18 16:44 INR 1.0 06/18/18 16:44 APTT 34.0 SECONDS (21-34) 06/18/18 16:44 - Constitutional Appears: Well - Head Exam Head Exam: ATRAUMATIC, NORMAL INSPECTION, NORMOCEPHALIC - Eye Exam Eye Exam: EOMI, Normal appearance, PERRL Pupil Exam: NORMAL ACCOMODATION, PERRL - ENT Exam ENT Exam: Mucous Membranes Moist, Normal Exam - Neck Exam Neck Exam: Full ROM, Normal Inspection. absent: Lymphadenopathy - Respiratory Exam Respiratory Exam: Decreased Breath Sounds - Cardiovascular Exam Cardiovascular Exam: REGULAR RHYTHM, +S1, +S2 - GI/Abdominal Exam GI & Abdominal Exam: Soft, Diminished Bowel Sounds - Rectal Exam Rectal Exam: Deferred - Neurological Exam Neurological Exam: Oriented x3 Assessment and Plan - Assessment and Plan (Free Text) Plan: plan discussed with patient and family moderate complexity of care labs reviewed vitals reviewed medications reviewed
[2018-06-20] MEDS: Latanoprost 2.5 ml Opht Soln OD SCH (22:37)
--- NOTE | 2018-06-21 10:31 | CP.PCM.PN ---
Subjective - Date & Time of Evaluation Date of Evaluation: 06/21/18 - Subjective Subjective: patient examined today no nausea no vomiting no shortness of breath no dizziness no fever no diarrhea Objective - Vital Signs/Intake and Output Vital Signs (last 24 hours): Temp Pulse Resp BP Pulse Ox 98.0 F 76 20 132/89 96 06/21/18 07:48 06/21/18 07:48 06/21/18 07:48 06/21/18 07:48 06/21/18 07:48 Intake and Output: 06/21/18 06/21/18 06:59 18:59 Output Total 800 Balance -800 - Medications Medications: Current Medications Amlodipine Besylate (Norvasc) 10 mg PO DAILY [facility] Last Admin: 06/20/18 10:45 Dose: 10 mg Aspirin (Aspirin Chewable) 81 mg PO DAILY [facility] Last Admin: 06/20/18 10:44 Dose: 81 mg Bisoprolol Fumarate (Zebeta) 5 mg PO DAILY [facility] Last Admin: 06/20/18 10:44 Dose: 5 mg Docusate Sodium (Colace) 100 mg PO BID [facility] Last Admin: 06/20/18 17:44 Dose: 100 mg Famotidine (Pepcid) 20 mg PO DAILY [facility] Last Admin: 06/20/18 10:45 Dose: 20 mg Furosemide (Lasix) 20 mg PO DAILY [facility] Last Admin: 06/20/18 10:44 Dose: 20 mg Sodium Chloride (Sodium Chloride 0.9%) 1,000 mls @ 60 mls/hr IV .[id number] [facility] Last Admin: 06/20/18 06:01 Dose: 60 mls/hr Latanoprost (Xalatan Opht) 0.05 ml OD [facility] Last Admin: 06/20/18 22:37 Dose: 0.05 ml Prednisone (Prednisone Tab) 5 mg PO DAILY [facility] Last Admin: 06/20/18 10:44 Dose: 5 mg Risperidone (Risperdal Tab) 0.25 mg PO Q12 [facility] Last Admin: 06/20/18 21:32 Dose: 0.25 mg Rosuvastatin Calcium (Crestor) 10 mg PO HS [facility] Last Admin: 06/20/18 21:32 Dose: 10 mg - Labs Labs: 06/18/18 15:41 06/18/18 16:44 PT 11.4 SECONDS (9.7-12.2) 06/18/18 16:44 INR 1.0 06/18/18 16:44 APTT 34.0 SECONDS (21-34) 06/18/18 16:44 - Constitutional Appears: Well - Head Exam Head Exam: ATRAUMATIC, NORMAL INSPECTION, NORMOCEPHALIC - Eye Exam Eye Exam: EOMI, Normal appearance, PERRL Pupil Exam: NORMAL ACCOMODATION, PERRL - ENT Exam ENT Exam: Mucous Membranes Moist, Normal Exam - Neck Exam Neck Exam: Full ROM, Normal Inspection. absent: Lymphadenopathy - Respiratory Exam Respiratory Exam: Decreased Breath Sounds - Cardiovascular Exam Cardiovascular Exam: REGULAR RHYTHM, +S1, +S2 - GI/Abdominal Exam GI & Abdominal Exam: Soft, Diminished Bowel Sounds - Rectal Exam Rectal Exam: Deferred - Neurological Exam Neurological Exam: Oriented x3 Assessment and Plan - Assessment and Plan (Free Text) Plan: medications reviewed aspirin chewable tablet ativan colace crestor klor-con lasix lovenox norvasc pepcid prednisone tab risperdal tab xalatan opht zebeta plan discussed with patient moderate complexity of care
--- NOTE | 2018-06-21 13:08 | CARD ---
APPROVED REPORT Date of service: 06/18/2018 EKG Measurement Heart [id number] <Conclusion> Sinus bradycardia Otherwise normal ECG
--- NOTE | 2018-06-21 13:30 | CP.PCM.PN ---
Subjective - Date & Time of Evaluation Date of Evaluation: 06/21/18 Time of Evaluation: 13:28 - Subjective Subjective: Neuro Follow Up Note: Mrs. Slade was evaluated this afternoon at bedside. She was pre-medicated with Ativan IV for MRI/MRA, and therefore, is currently sleeping and unable to participate in neuro exam. She does not appear to be in any distress. Neuro exam limited and ROS is unobtainable at this time. Objective - Vital Signs/Intake and Output Vital Signs (last 24 hours): Temp Pulse Resp BP Pulse Ox 98.0 F 76 20 116/66 96 06/21/18 07:48 06/21/18 07:48 06/21/18 07:48 06/21/18 10:30 06/21/18 07:48 Intake and Output: 06/21/18 06/21/18 06:59 18:59 Output Total 800 Balance -800 - Medications Medications: Current Medications Amlodipine Besylate (Norvasc) 10 mg PO DAILY [facility] Last Admin: 06/21/18 10:29 Dose: 10 mg Aspirin (Aspirin Chewable) 81 mg PO DAILY [facility] Last Admin: 06/21/18 10:35 Dose: 81 mg Bisoprolol Fumarate (Zebeta) 5 mg PO DAILY [facility] Last Admin: 06/20/18 10:44 Dose: 5 mg Docusate Sodium (Colace) 100 mg PO BID [facility] Last Admin: 06/21/18 10:29 Dose: 100 mg Famotidine (Pepcid) 20 mg PO DAILY [facility] Last Admin: 06/21/18 10:35 Dose: 20 mg Furosemide (Lasix) 20 mg PO DAILY [facility] Last Admin: 06/21/18 10:30 Dose: 20 mg Sodium Chloride (Sodium Chloride 0.9%) 1,000 mls @ 60 mls/hr IV .[id number] [facility] Last Admin: 06/20/18 06:01 Dose: 60 mls/hr Latanoprost (Xalatan Opht) 0.05 ml OD HS [facility] Last Admin: 06/20/18 22:37 Dose: 0.05 ml Lorazepam (Ativan) 0.5 mg IVP ONCE PRN PRN Reason: may give once prior to MRI/MRA Last Admin: 06/21/18 11:07 Dose: 0.5 mg Prednisone (Prednisone Tab) 5 mg PO DAILY [facility] Last Admin: 06/21/18 10:30 Dose: 5 mg Risperidone (Risperdal Tab) 0.25 mg PO Q12 [facility] Last Admin: 06/21/18 10:35 Dose: 0.25 mg Rosuvastatin Calcium (Crestor) 10 mg PO HS [facility] Last Admin: 06/20/18 21:32 Dose: 10 mg - Labs Labs: 06/18/18 15:41 06/18/18 16:44 PT 11.4 SECONDS (9.7-12.2) 06/18/18 16:44 INR 1.0 06/18/18 16:44 APTT 34.0 SECONDS (21-34) 06/18/18 16:44 - Constitutional Appears: Other (sleeping; given Ativan for MRI/MRA) - Head Exam Head Exam: ATRAUMATIC, NORMAL INSPECTION, NORMOCEPHALIC - Eye Exam Eye Exam: PERRL Pupil Exam: NORMAL ACCOMODATION, PERRL - ENT Exam ENT Exam: Mucous Membranes Moist - Neck Exam Neck Exam: Normal Inspection - Respiratory Exam Respiratory Exam: NORMAL BREATHING PATTERN - Extremities Exam Extremities Exam: Normal Inspection. absent: Pedal Edema - Neurological Exam Neurological Exam: Altered Additional comments: Pt is sleeping after being given Ativan IV for MRI and MRA She is unable to participate in neuro exam. Appears comfortable. No tremors or abnormal movements noted. - Psychiatric Exam Additional comments: sleeping post-Ativan IV for MRI/MRA - Skin Skin Exam: Dry, Intact, Normal Color Assessment and Plan - Assessment and Plan (Free Text) Assessment: A/P: Mrs. Slade is an 83 y/o woman who was admitted for left sided arm and leg weakness and left facial droop. Stroke w/u still in progress and we are still i n the process of ruling out seizures (EEG report pending). Imaging reviewed: -CT Head (06/18/18): No evidence of acute infarct. No intracranial hemorrhage. Chronic white matter ischemic change and age-appropriate atrophy. -EEG done, results are still pending---will f/u. -MRI Brain and MRA Head and neck ordered for stroke w/u--will be done this afternoon; f/u with results. Dr. Negrete ok'd MRI/MRA to be done with pt's loop recorder. -Continue PT/OT. -Continue ASA and statin. -Continue supportive care and management of other medical issues. -Notify neuro team of any acute changes to pt's condition. Bibiana Martinez DNP, WATER RESOURCE ENGINEER d/w Dr. Arias
[2018-06-21] MEDS: Sodium Chloride 0.9% 1,000 ML IV SCH ×2 (15:18→15:34)
[2018-06-21] MEDS: Latanoprost 2.5 ml Opht Soln OD SCH (21:34)
[2018-06-22] MEDS: Enoxaparin 40 mg Syringe SC SCH (11:09)
[2018-06-22 12:15] LABS: BASO % 0.8 % (0.0-2.0); EOS # 0.1 K/uL (0.0-0.7); EOS % 0.9 % (0.0-4.0); HEMOGLOBIN 12.2 g/dL (11.0-16.0); LYMPH # 0.9 K/uL (1.0-4.3); MEAN CELL VOLUME 85.2 fL (81.0-99.0); MEAN CORPUSCULAR HEMOGLOBIN 28.2 pg (27.0-31.0); MEAN CORPUSCULAR HGB CONC 33.1 g/dL (33.0-37.0); MEAN PLATELET VOLUME 7.7 fL (7.2-11.7); MONO # 0.4 K/uL (0.0-0.8); MONO % 7.7 % (0.0-10.0); NEUT # 4.2 K/uL (1.8-7.0); NEUT % 74.6 % (50.0-75.0); RBC 4.32 Mil/uL (3.80-5.20); RED CELL DISTRIBUTION WIDTH 14.5 % (11.5-14.5); WHITE BLOOD COUNT 5.6 K/uL (4.8-10.8)
--- NOTE | 2018-06-22 12:21 | PCM.EEG ---
Electroencephalogram Report - Electroencephalogram Report Procedure Date: 06/20/18 Medication: Risperdal, ASA. Interpretation: Medications: None listed Technical Information: This was a 16-channel EEG, 1-channel EKG , performed using an [employer] machine., electrodes were applied according to the 10/20 international placement system, impedances were less than 5 K Ohm. Start; ;28 End; ;50 Total 22 min Clinical Information: alter mental status EEG Detail: During resting wakefulness there was a poorly developed symmetric posterior dominant rhythm at 7 Hz, 30-50 uV, which was reactive to eye opening and closing. Drowsiness (11;46) was associated with fragmentation of the posterior dominant rhythm and with slow roving eye movements. . Hyperventilation was not performed. Photic stimulation was performed and there were no changes in the record. ECG was associated with a normal sinus rhythm. Impression: This is an abnormal EEG record that demonstrate the presence of a mild non specific diffuse disturbance of cortical activity, this is in keeping with a diffuse hogan matter dysfunction. These findings do not support a specific e tiology. No seizures, not in status epilepticus.
[2018-06-22 12:40] LABS: BLOOD UREA NITROGEN 15 mg/dL (7-17); CALCIUM 8.9 mg/dl (8.6-10.4); GFR NON-AFRICAN AMERICAN > 60
--- NOTE | 2018-06-22 15:16 | CT ---
Date of service: 06/22/2018 PROCEDURE: CT HEAD WITHOUT CONTRAST. HISTORY: r/o stroke COMPARISON: Unenhanced head CT 06/18/2018. TECHNIQUE: Axial computed tomography images were obtained through the head/brain without intravenous contrast. Radiation dose: Total exam DLP = 1010.1 mGy-cm. This CT exam was performed using one or more of the following dose reduction techniques: Automated exposure control, adjustment of the mA and/or kV according to patient size, and/or use of iterative reconstruction technique. FINDINGS: HEMORRHAGE: No intracranial hemorrhage. BRAIN: Good corticomedullary differentiation is seen. Reiterated diffuse cerebral atrophy and chronic microangiopathy. No suspicious extra-axial fluid collection is identified and the midline brain anatomy appears grossly nonfocal as imaged. No mass effect identified. VENTRICLES: Unremarkable. No hydrocephalus. CALVARIUM: Unremarkable. PARANASAL SINUSES: Unremarkable as visualized. No significant inflammatory changes. MASTOID AIR CELLS: Unremarkable as visualized. No inflammatory changes. OTHER FINDINGS: None. IMPRESSION: No significant interval change compared prior head CT 06/18/2018. Mild age related neuro degenerative findings are reiterated and remain age-appropriate.
[2018-06-22] MEDS ORDERED: Potassium Chloride 20 mEq ER Tab PO ONE ×2 (20:00→22:00)
--- NOTE | 2018-06-22 20:30 | CP.PCM.PN ---
Subjective - Date & Time of Evaluation Date of Evaluation: 06/22/18 - Subjective Subjective: patient examined today no nausea no vomiting no shortness of breath no dizziness no fever no diarrhea Objective - Vital Signs/Intake and Output Vital Signs (last 24 hours): Temp Pulse Resp BP Pulse Ox 98.1 F 70 20 122/64 97 06/22/18 15:40 06/22/18 15:40 06/22/18 15:40 06/22/18 15:40 06/22/18 15:40 - Medications Medications: Current Medications Amlodipine Besylate (Norvasc) 10 mg PO DAILY [facility] Last Admin: 06/22/18 11:09 Dose: 10 mg Aspirin (Aspirin Chewable) 81 mg PO DAILY [facility] Last Admin: 06/22/18 11:08 Dose: 81 mg Bisoprolol Fumarate (Zebeta) 5 mg PO DAILY [facility] Last Admin: 06/22/18 11:15 Dose: 5 mg Docusate Sodium (Colace) 100 mg PO BID [facility] Last Admin: 06/22/18 17:42 Dose: 100 mg Enoxaparin Sodium (Lovenox) 40 mg SC DAILY [facility] Last Admin: 06/22/18 11:09 Dose: 40 mg Famotidine (Pepcid) 20 mg PO DAILY [facility] Last Admin: 06/22/18 11:07 Dose: 20 mg Furosemide (Lasix) 20 mg PO DAILY [facility] Last Admin: 06/22/18 11:12 Dose: 20 mg Latanoprost (Xalatan Opht) 0.05 ml OD HS [facility] Last Admin: 06/21/18 21:34 Dose: 0.05 ml Lorazepam (Ativan) 0.5 mg IVP ONCE PRN PRN Reason: may give once prior to MRI/MRA Last Admin: 06/21/18 11:07 Dose: 0.5 mg Potassium Chloride (Klor-Con 10) 10 meq PO DAILY [facility] Prednisone (Prednisone Tab) 5 mg PO DAILY [facility] Last Admin: 06/22/18 11:08 Dose: 5 mg Risperidone (Risperdal Tab) 0.25 mg PO Q12 [facility] Last Admin: 06/22/18 11:14 Dose: 0.25 mg Rosuvastatin Calcium (Crestor) 10 mg PO HS [facility] Last Admin: 06/21/18 21:39 Dose: 10 mg - Labs Labs: 06/22/18 12:00 06/22/18 12:00 PT 11.4 SECONDS (9.7-12.2) 06/18/18 16:44 INR 1.0 06/18/18 16:44 APTT 34.0 SECONDS (21-34) 06/18/18 16:44 - Constitutional Appears: Well - Head Exam Head Exam: ATRAUMATIC, NORMAL INSPECTION, NORMOCEPHALIC - Eye Exam Eye Exam: EOMI, Normal appearance, PERRL Pupil Exam: NORMAL ACCOMODATION, PERRL - ENT Exam ENT Exam: Mucous Membranes Moist, Normal Exam - Neck Exam Neck Exam: Full ROM, Normal Inspection. absent: Lymphadenopathy - Respiratory Exam Respiratory Exam: Decreased Breath Sounds - Cardiovascular Exam Cardiovascular Exam: REGULAR RHYTHM, +S1, +S2 - GI/Abdominal Exam GI & Abdominal Exam: Soft, Diminished Bowel Sounds - Rectal Exam Rectal Exam: Deferred - Neurological Exam Neurological Exam: Oriented x3 Assessment and Plan - Assessment and Plan (Free Text) Plan: medications reviewed aspirin chewable tablet ativan colace crestor klor-con lasix lovenox norvasc pepcid prednisone tab risperdal tab xalatan opht zebeta plan discussed with patient moderate complexity of care
[2018-06-22] MEDS: Latanoprost 2.5 ml Opht Soln OD SCH (21:16)
[2018-06-23] MEDS: Enoxaparin 40 mg Syringe SC SCH (09:29)
[2018-06-23] MEDS ORDERED: Potassium Chloride 10 mEq ER Tab PO SCH (10:00)
--- NOTE | 2018-06-23 13:47 | CP.PCM.PN ---
Subjective - Date & Time of Evaluation Date of Evaluation: 06/23/18 Time of Evaluation: 13:47 Objective - Vital Signs/Intake and Output Vital Signs (last 24 hours): Temp Pulse Resp BP Pulse Ox 98.6 F 70 20 134/74 99 06/23/18 07:30 06/23/18 07:30 06/23/18 07:30 06/23/18 09:22 06/23/18 07:30 - Medications Medications: Current Medications Amlodipine Besylate (Norvasc) 10 mg PO DAILY [facility] Last Admin: 06/23/18 09:23 Dose: 10 mg Aspirin (Aspirin Chewable) 81 mg PO DAILY [facility] Last Admin: 06/23/18 09:23 Dose: 81 mg Bisoprolol Fumarate (Zebeta) 5 mg PO DAILY [facility] Last Admin: 06/23/18 09:21 Dose: 5 mg Docusate Sodium (Colace) 100 mg PO BID [facility] Last Admin: 06/23/18 09:21 Dose: 100 mg Enoxaparin Sodium (Lovenox) 40 mg SC DAILY [facility] Last Admin: 06/23/18 09:29 Dose: 40 mg Famotidine (Pepcid) 20 mg PO DAILY [facility] Last Admin: 06/23/18 09:23 Dose: 20 mg Furosemide (Lasix) 20 mg PO DAILY [facility] Last Admin: 06/23/18 09:22 Dose: 20 mg Latanoprost (Xalatan Opht) 0.05 ml OD HS [facility] Last Admin: 06/22/18 21:16 Dose: 0.05 ml Lorazepam (Ativan) 0.5 mg IVP ONCE PRN PRN Reason: may give once prior to MRI/MRA Last Admin: 06/21/18 11:07 Dose: 0.5 mg Potassium Chloride (Klor-Con 10) 10 meq PO DAILY [facility] Last Admin: 06/23/18 09:23 Dose: 10 meq Prednisone (Prednisone Tab) 5 mg PO DAILY [facility] Last Admin: 06/23/18 09:23 Dose: 5 mg Risperidone (Risperdal Tab) 0.25 mg PO Q12 [facility] Last Admin: 06/23/18 09:22 Dose: 0.25 mg Rosuvastatin Calcium (Crestor) 10 mg PO HS [facility] Last Admin: 06/22/18 21:16 Dose: 10 mg - Labs Labs: 06/22/18 12:00 06/22/18 12:00 PT 11.4 SECONDS (9.7-12.2) 06/18/18 16:44 INR 1.0 06/18/18 16:44 APTT 34.0 SECONDS (21-34) 06/18/18 16:44 Assessment and Plan - Assessment and Plan (Free Text) Assessment: A/P: Mrs. Slade is an 83 y/o woman who was admitted for left sided arm and leg weakness and left facial droop. Imaging reviewed: -CT Head (06/18/18): No evidence of acute infarct. No intracranial hemorrhage. Chronic white matter ischemic change and age-appropriate atrophy. -EEG (06/22/18): This is an abnormal EEG record that demonstrate the presence of a mild non specific diffuse disturbance of cortical activity, this is in keeping with a diffuse hogan matter dysfunction. These findings do not support a specific etiology. No seizures, not in status epilepticus. -Carotid U/S pending; can be done as outpatient if pt is d/c. -MRI Brain and MRA Head and neck were initially recommended, however, pt refused several times. -Continue PT/OT. -Continue ASA and statin. -Continue supportive care and management of other medical issues. -Notify neuro team of any acute changes to pt's condition. Bibiana Martinez, CAR[facility], FOUNDATION ASSISTANT d/w Dr. Arias
--- NOTE | 2018-06-23 15:13 | CP.PCM.PN ---
Subjective - Date & Time of Evaluation Date of Evaluation: 06/23/18 - Subjective Subjective: patient examined today at bedside no nausea no vomiting no fever no dizziness no shortness of breath Objective - Vital Signs/Intake and Output Vital Signs (last 24 hours): Temp Pulse Resp BP Pulse Ox 98.6 F 70 20 134/74 99 06/23/18 07:30 06/23/18 07:30 06/23/18 07:30 06/23/18 09:22 06/23/18 07:30 - Medications Medications: Current Medications Amlodipine Besylate (Norvasc) 10 mg PO DAILY [facility] Last Admin: 06/23/18 09:23 Dose: 10 mg Aspirin (Aspirin Chewable) 81 mg PO DAILY [facility] Last Admin: 06/23/18 09:23 Dose: 81 mg Bisoprolol Fumarate (Zebeta) 5 mg PO DAILY [facility] Last Admin: 06/23/18 09:21 Dose: 5 mg Docusate Sodium (Colace) 100 mg PO BID [facility] Last Admin: 06/23/18 09:21 Dose: 100 mg Enoxaparin Sodium (Lovenox) 40 mg SC DAILY [facility] Last Admin: 06/23/18 09:29 Dose: 40 mg Famotidine (Pepcid) 20 mg PO DAILY [facility] Last Admin: 06/23/18 09:23 Dose: 20 mg Furosemide (Lasix) 20 mg PO DAILY [facility] Last Admin: 06/23/18 09:22 Dose: 20 mg Latanoprost (Xalatan Opht) 0.05 ml OD HS [facility] Last Admin: 06/22/18 21:16 Dose: 0.05 ml Lorazepam (Ativan) 0.5 mg IVP ONCE PRN PRN Reason: may give once prior to MRI/MRA Last Admin: 06/21/18 11:07 Dose: 0.5 mg Potassium Chloride (Klor-Con 10) 10 meq PO DAILY [facility] Last Admin: 06/23/18 09:23 Dose: 10 meq Prednisone (Prednisone Tab) 5 mg PO DAILY [facility] Last Admin: 06/23/18 09:23 Dose: 5 mg Risperidone (Risperdal Tab) 0.25 mg PO Q12 [facility] Last Admin: 06/23/18 09:22 Dose: 0.25 mg Rosuvastatin Calcium (Crestor) 10 mg PO HS [facility] Last Admin: 06/22/18 21:16 Dose: 10 mg - Labs Labs: 06/22/18 12:00 06/22/18 12:00 PT 11.4 SECONDS (9.7-12.2) 06/18/18 16:44 INR 1.0 06/18/18 16:44 APTT 34.0 SECONDS (21-34) 06/18/18 16:44 - Constitutional Appears: Well - Head Exam Head Exam: ATRAUMATIC, NORMAL INSPECTION, NORMOCEPHALIC - Eye Exam Eye Exam: EOMI, Normal appearance, PERRL Pupil Exam: NORMAL ACCOMODATION, PERRL - ENT Exam ENT Exam: Mucous Membranes Moist, Normal Exam - Neck Exam Neck Exam: Full ROM, Normal Inspection. absent: Lymphadenopathy - Respiratory Exam Respiratory Exam: Decreased Breath Sounds - Cardiovascular Exam Cardiovascular Exam: REGULAR RHYTHM, +S1, +S2 - GI/Abdominal Exam GI & Abdominal Exam: Soft, Diminished Bowel Sounds - Rectal Exam Rectal Exam: Deferred - Neurological Exam Neurological Exam: Oriented x3 Assessment and Plan - Assessment and Plan (Free Text) Plan: aspirin chewable tablet ativan colace crestor klor-con lasix lovenox norvasc pepcid prednisone tab risperdal tab xalatan opht zebeta medications reviewed labs and vitals reviewed plan discussed with patient moderate complexity of care
--- NOTE | 2018-06-23 16:18 | CP.PCM.PN ---
Subjective - Date & Time of Evaluation Date of Evaluation: 06/23/18 Time of Evaluation: 15:00 - Subjective Subjective: patient seen today awake alert, oriented to person only , confused comfortable in bed vss - reviewed - stable carotid- negative MRI - unable to do ir - patient refused and uncooperative repeat CT done - no significant changes from previous CT No evidence of acute infarct. No intracranial hemorrhage. Chronic white matter ischemic change and age-appropriate atrophy. Objective - Vital Signs/Intake and Output Vital Signs (last 24 hours): Temp Pulse Resp BP Pulse Ox 98.6 F 70 20 134/74 99 06/23/18 07:30 06/23/18 07:30 06/23/18 07:30 06/23/18 09:22 06/23/18 07:30 - Medications Medications: Current Medications Amlodipine Besylate (Norvasc) 10 mg PO DAILY [facility] Last Admin: 06/23/18 09:23 Dose: 10 mg Aspirin (Aspirin Chewable) 81 mg PO DAILY [facility] Last Admin: 06/23/18 09:23 Dose: 81 mg Bisoprolol Fumarate (Zebeta) 5 mg PO DAILY [facility] Last Admin: 06/23/18 09:21 Dose: 5 mg Docusate Sodium (Colace) 100 mg PO BID [facility] Last Admin: 06/23/18 09:21 Dose: 100 mg Enoxaparin Sodium (Lovenox) 40 mg SC DAILY [facility] Last Admin: 06/23/18 09:29 Dose: 40 mg Famotidine (Pepcid) 20 mg PO DAILY [facility] Last Admin: 06/23/18 09:23 Dose: 20 mg Furosemide (Lasix) 20 mg PO DAILY [facility] Last Admin: 06/23/18 09:22 Dose: 20 mg Latanoprost (Xalatan Opht) 0.05 ml OD HS [facility] Last Admin: 06/22/18 21:16 Dose: 0.05 ml Lorazepam (Ativan) 0.5 mg IVP ONCE PRN PRN Reason: may give once prior to MRI/MRA Last Admin: 06/21/18 11:07 Dose: 0.5 mg Potassium Chloride (Klor-Con 10) 10 meq PO DAILY [facility] Last Admin: 06/23/18 09:23 Dose: 10 meq Prednisone (Prednisone Tab) 5 mg PO DAILY [facility] Last Admin: 06/23/18 09:23 Dose: 5 mg Risperidone (Risperdal Tab) 0.25 mg PO Q12 [facility] Last Admin: 06/23/18 09:22 Dose: 0.25 mg Rosuvastatin Calcium (Crestor) 10 mg PO HS [facility] Last Admin: 06/22/18 21:16 Dose: 10 mg - Labs Labs: 06/22/18 12:00 06/22/18 12:00 PT 11.4 SECONDS (9.7-12.2) 06/18/18 16:44 INR 1.0 06/18/18 16:44 APTT 34.0 SECONDS (21-34) 06/18/18 16:44 Assessment and Plan - Assessment and Plan (Free Text) Assessment: A/P 83 y/o Female sent from [place] for evaluation of possible stroke , patient seen with L sided facial droop, L sided weakness,in [place] , symptoms resolved upon arrival to [facility] ED and admitted with TIA K- 3.1 yesterday replaced and on daily k - repeat labs on Wednesday at rehab CT scan - CT No evidence of acute infarct. No intracranial hemorrhage. Chronic white matter ischemic change and age-appropriate atrophy. unable to do MRI - pt refused and un coperative repeat CT done - no signficant changes neuro team seen patient today, cleared for discharge if carotid negative and recommends to continue aspirin and statin carotid done today and negative D/w Dr. Driscoll , cleared for discharge back to [facility] and Dr. Driscoll will follow the patient at [facility]
[2018-06-23 16:46] VITALS: BP 135/77; PULSE 84; RESP 18; TEMP 98.1; O2SAT 97
[2018-06-23] MEDS ORDERED: Potassium Chloride 20 mEq ER Tab PO ONE (22:00)
--- NOTE | 2018-06-24 13:45 | VASCLAB ---
Date of service: 06/23/2018 PROCEDURE: Carotid Duplex Exam. HISTORY: stenosis or occlusion COMPARISON: None available. TECHNIQUE: Grayscale and duplex Doppler evaluation of the cervical carotid and vertebral arteries were performed. The common carotid, carotid bifurcations and cervical Internal Carotid Artery (ICA) and proximal External Carotid Artery (ECA) were evaluated. The vertebral arteries were evaluated for gross patency and flow direction. Report prepared by TYRESE Petty FINDINGS: RIGHT CAROTID ARTERIES: 1. Common Carotid Artery: No significant focal plaque formation of the right common carotid artery. Maximum Peak Systolic velocity: 120 cm/sec: End-diastolic velocity 0 cm/sec. 2. Carotid Bifurcation: plaque formation. Maximum Peak Systolic velocity: 54 cm/sec: End-diastolic velocity 0 cm/sec. 3. Internal Carotid Artery: Plaque description: 3.1. Proximal Segment: Peak systolic velocity 44 cm/sec: End-diastolic velocity 8 cm/sec - % stenosis 0-15% 3.2. Middle Segment: Peak systolic velocity 46 cm/sec: End-diastolic velocity 8 cm/sec - % stenosis 0-15% 3.3. Distal Segment: Peak systolic velocity 43 cm/sec: End-diastolic velocity 0 cm/sec - % stenosis 0-15% 4. External Carotid Artery: No significant focal plaque formation. Peak systolic velocity 90 cm/sec 5. ICA/CCA Ratio: 1.0 LEFT CAROTID ARTERIES: 1. Common Carotid Artery: No significant focal plaque formation of the left common carotid artery. Maximum Peak Systolic velocity: 100 cm/sec: End-diastolic velocity 0 cm/sec. 2. Carotid Bifurcation: plaque formation. Maximum Peak Systolic velocity: 55 cm/sec: End-diastolic velocity 0 cm/sec. 3. Internal Carotid Artery: Plaque description: 3.1. Proximal Segment: Peak systolic velocity 58 cm/sec: End-diastolic velocity 10 cm/sec - % stenosis 0-15% 3.2. Middle Segment: Peak systolic velocity 53 cm/sec: End-diastolic velocity 6 cm/sec - % stenosis 0-15% 3.3. Distal Segment: Peak systolic velocity 94 cm/sec: End-diastolic velocity 11 cm/sec - % stenosis 0-15% 4. External Carotid Artery: No significant focal plaque formation. Peak systolic velocity 104 cm/sec 5. ICA/CCA Ratio: 1.3 VERTEBRAL ARTERIES: 1. Right Vertebral Artery: The right vertebral artery flow direction is antegrade. 2. Left Vertebral Artery: The left vertebral artery flow direction is antegrade. OTHER FINDINGS: 1. No atherosclerotic calcification present IMPRESSION: RIGHT: Duplex scan does not suggest hemodynamically significant stenosis of the right extracranial carotid arteries. LEFT: Duplex scan does not suggest hemodynamically significant stenosis of the left extracranial carotid arteries.
== END 2018-06-23 19:42 | DRG 69 ==
LOC: C.ER 15:32 → C.9E 17:46 → C.6T 18:23 → OBSVTOIN 06-21 14:38 → C.6T 06-21 22:46
PROVIDERS: ADMIT Internal Medicine Nephrology; ATTEND Internal Medicine Nephrology
DX: G45.9 Transient cerebral ischemic attack, unspecified (principal); I10 Essential (primary) hypertension; R29.704 NIHSS score 4; R29.810 Facial weakness; F20.9 Schizophrenia, unspecified; M19.90 Unspecified osteoarthritis, unspecified site; E78.00 Pure hypercholesterolemia, unspecified; Z86.19 Personal history of other infectious and parasitic diseases; Z91.041 Radiographic dye allergy status; Z91.018 Allergy to other foods; Z90.710 Acquired absence of both cervix and uterus